=== PATIENT | female | born 1975 | race Hispanic/Latino ===

== ENCOUNTER → 2024-09-13 | Day surgery (SDC) | payer OTHER ==
[~2024-09-13] MED LIST: LIDOCAINE HCL 2% LOCAL INJ 5 ML SDV VIAL INJ ONE; MIDAZOLAM HCL 2 MG/2 ML VIAL ONE; PROPOFOL IV EMULSION 10 MG/ML 20 ML VIAL ONE; PROPOFOL IV EMULSION 50 ML IV ONE; TIZANIDINE HCL4 MG PO; VITAMIN C1000 MG PO
[2024-09-13 11:41] VITALS: TEMP 97.3
[2024-09-13 12:10] VITALS: BP 131/84; PULSE 75; RESP 16; O2SAT 100
== END | disposition home or self-care (01) ==
LOC: OR 09:37
PROVIDERS: ATTEND Internal Medicine Gastroenterology
DX: K29.00 Acute gastritis without bleeding (principal); D12.4 Benign neoplasm of descending colon; D13.0 Benign neoplasm of esophagus; K29.50 Unspecified chronic gastritis without bleeding; B96.81 Helicobacter pylori [H. pylori] as the cause of diseases classified elsewhere; K21.00 Gastro-esophageal reflux disease with esophagitis, without bleeding; K44.9 Diaphragmatic hernia without obstruction or gangrene; K59.00 Constipation, unspecified; K64.8 Other hemorrhoids; G80.9 Cerebral palsy, unspecified; G40.909 Epilepsy, unspecified, not intractable, without status epilepticus; I49.9 Cardiac arrhythmia, unspecified; E78.5 Hyperlipidemia, unspecified; M06.9 Rheumatoid arthritis, unspecified; M19.90 Unspecified osteoarthritis, unspecified site; H91.90 Unspecified hearing loss, unspecified ear; F41.9 Anxiety disorder, unspecified; Z88.8 Allergy status to other drugs, medicaments and biological substances; Z87.898 Personal history of other specified conditions; Z80.0 Family history of malignant neoplasm of digestive organs
CPT/HCPCS: 43239; 43251; 45380; 81025; J2003; J2250; J2704; 45378